=== PATIENT | female | born 1975 | race Caucasian/White ===

== ENCOUNTER 2023-07-08 09:58 | Emergency (ER) | payer OTHER ==
[~2023-07-08] VITALS: Ht 149.9 cm; Wt 83.9 kg
[2023-07-08 10:22] VITALS: BP 137/85; PULSE 72; RESP 18; TEMP 97.7; O2SAT 97
[2023-07-08] MEDS: IBUPROFEN 600 MG TAB PO ONE (11:08)
[2023-07-08] MEDS ORDERED: ACET-10509 PO (12:16)
[2023-07-08] MEDS ORDERED: IBUP-2218 PO (12:16)
[2023-07-08 12:39] VITALS: BP 137/85; PULSE 72; RESP 18; TEMP 97.7; O2SAT 97
== END 2023-07-08 12:50 | disposition home or self-care (01) ==
LOC: MED 09:58
DX: M23.92 Unspecified internal derangement of left knee (principal); Z79.899 Other long term (current) drug therapy
CPT/HCPCS: 73562; 99283